=== PATIENT | male | born 1960 | race Two or more races ===

== ENCOUNTER 2025-06-08 07:42 | Inpatient (IN) | payer MEDICARE, SELFPAY ==
[2025-06-08] VITALS (16 sets, daily range): BP systolic 114–141; BP diastolic 65–84; PULSE 81–98; RESP 16–100; TEMP 36–37.6; O2SAT 99–100; BMI 23.2
--- NOTE | 2025-06-08 08:04 | XR_ITS ---
Examination: CT abdomen and pelvis without contrast. Coronal 3-D reconstructions. Sagittal 2-D reconstructions. Date and time of exam:June 08, 2025 0856 hours INDICATIONS: Generalized abdominal pain today CTDI: vol (mGy): 4.71 DLP: (mGycm): 238 Technique: Axial images of the abdomen have been obtained, 3 mm slice thickness Intravenous contrast material has not been administered. Low dose protocols were performed. One or more of the following dose reduction techniques were used; automated exposure control, adjustment of the mA and/or KV according to patient size, use of iterative reconstruction technique. Findings: No focal liver or splenic lesion No gallstones No pancreatic or adrenal mass No renal or ureteral calculi, no hydronephrosis Aorta normal size Normal appendix No bowel obstruction Sigmoid colon wall is abnormally thickened, axial image 151 on this noncontrast study Mild prostatomegaly Intact urinary bladder Moderate osteopenia IMPRESSION: No renal or ureteral calculi, no hydronephrosis Normal appendix Sigmoid colon wall is abnormally thickened, recommend colonoscopy follow-up to exclude early malignant neoplasm of the sigmoid colon
--- NOTE | 2025-06-08 08:04 | PD.EDRME ---
Rapid Medical Screening Exam RME Arrival date/time: 06/08/25 07:42 65-year-old male with a history of hypertension presents to the emergency room after being sent by [facility] for hemoglobin of 5.6. Patient states he had 1 episode of rectal bleeding today. I have greeted and performed a focused initial assessment of this patient. A comprehensive ED assessment and evaluation of the patient, analysis of all test results, and completion of the medical decision making process will be conducted by additional ED providers. Chief Complaint: General Adult/Misc Complain Vital signs: Vital Signs Temperature 98.1 F 06/08/25 07:53 Pulse Rate 98 06/08/25 07:53 Respiratory Rate 19 06/08/25 07:53 Blood Pressure 118/71 06/08/25 07:53 Pulse Oximetry (%) 100 06/08/25 07:53 Oxygen Delivery Method Room Air 06/08/25 07:53 Vital signs reviewed by provider: Yes
[2025-06-08 08:37] LABS: Collection Type, Urine Clean Catch; Squamous Epithelial Cell,Urine 0 /hpf (0-5)
[2025-06-08 08:53] LABS: Bilirubin,Urine Negative (Negative); Blood,Urine Negative (Negative); Clarity,Urine Clear (Clear/Hazy); Color,Urine Lt-Yellow (Lt Yel-Yel); Glucose, Urine Negative (Negative); Hyaline Casts,Urine < 1 /hpf (0-1); Ketones,Urine Negative (Negative); Leukocyte Esterase,Urine Negative (Negative); Nitrite,Urine Negative (Negative); PH,Urine 6.0 (5.0-7.0); Protein,Urine Negative (Neg - Trace); RBC,Urine < 1 /hpf (0-3); Specific Gravity,Urine 1.013 (1.001-1.035); Urobilinogen,Urine Negative mg/dL (0.0-1.0); WBC,Urine < 1 /hpf (0-5)
[2025-06-08 09:07] LABS: Basophils # (Auto) 0.1 Thou/mm3 (0.0-0.2); Basophils % (Auto) 1 % (0-2.5); Eosinophils # (Auto) 0.3 Thou/mm3 (0.0-0.5); Eosinophils % (Auto) 3 % (0-10); Hematocrit 21.6 % (41.0-53.0); Immature Granulocytes Auto 0.03 Thou/mm3 (0.00-0.00); Lymphocytes # (Auto) 1.2 Thou/mm3 (1.0-4.8); Lymphocytes % (Auto) 15 % (10-50); Mean Corpuscular HGB Conc 25.5 g/dl (31.0-37.0); Mean Corpuscular Hemoglobin 14.0 pg (25.0-35.0); Mean Corpuscular Volume 55 fL (80-100); Monocytes # (Auto) 0.9 Thou/mm3 (0.0-0.8); Monocytes % (Auto) 12 % (0-12); Neutrophils # (Auto) 5.4 Thou/mm3 (1.8-7.7); Neutrophils % (Auto) 69 % (37-80); Nucleated Red Blood Cell # 0.05 Thou/mm3 (0.00-0.00); Nucleated Red Blood Cell % 1 /100 WBC (0); Platelet Count 414 Thou/mm3 (140-440); RDW Standard Deviation 45.5 fL (35.1-43.9); Red Blood Count 3.92 Miln/mm3 (4.50-5.90); White Blood Count 7.8 Thou/mm3 (3.8-10.6)
[2025-06-08 09:20] LABS: Alanine Aminotransferase 20 U/L (10-49); Albumin, Serum 4.6 gm/dL (3.4-4.8); Albumin/Globulin Ratio 1.6 (1.2-2.2); Alkaline Phosphatase 62 U/L (46-116); Anion Gap 11 (7-16); Aspartate Amino Transferase 24 U/L (0-34); BUN/Creatinine Ratio 17 Ratio (12-20); Bilirubin,Total 0.4 mg/dL (0.3-1.2); Blood Urea Nitrogen 24 mg/dL (9-23); Calcium 9.1 mg/dL (8.3-10.6); Calcium (Corrected) 9.1 mg/dL (8.5-10.1); Carbon Dioxide 21.4 mMol/L (20.0-31.0); Chloride 106 mMol/L (98-107); Creatinine (Component) 1.4 mg/dL (0.6-1.3); Estimated Creatinine Clearance 37.9 mL/min (>60); Globulin 2.9 gm/dL (2.3-3.5); Glucose 148 mg/dL (74-106); Lipase 109 U/L (12-53); Osmolality,Calculated 282 (275-295); Potassium 4.0 mMol/L (3.4-5.1); Sodium 138 mMol/L (136-145); Total Protein 7.5 gm/dL (5.7-8.2); eGFR 55 See Note
[2025-06-08 09:24] LABS: INR 0.9 (0.9-1.3); Partial Thromboplastin Time 23.9 Seconds (22.0-36.0); Prothrombin Time 10.3 Seconds (9.0-12.2)
[2025-06-08 09:56] LABS: Hemoglobin 5.5 g/dL (13.5-16.0)
--- NOTE | 2025-06-08 10:57 | PD.EDADULT ---
ED General RME/HPI General Chief complaint: General Adult/Misc Complain Stated complaint: HBG 5.6; SENT BY [facility] Time Seen by Provider: 06/08/25 08:42 Arrival date/time: 06/08/25 07:42 RME / HPI RME / HPI narrative: 06/08/25 07:42 65-year-old male with a history of hypertension presents to the emergency room after being sent by [facility] for hemoglobin of 5.6. Patient states he had 1 episode of rectal bleeding today. I have greeted and performed a focused initial assessment of this patient. A comprehensive ED assessment and evaluation of the patient, analysis of all test results, and completion of the medical decision making process will be conducted by additional ED providers. DR. NARVAEZ MAIN ED EVALUATION 65 year old male with history of hypertension presents to the ED sent by PCP at [facility] for further evaluation and treatment of anemia today. Patient reports he consulted his PCP for evaluation of global weakness beginning 1 month ago and had labs drawn on 06/06/2025. States he received a call today stating his HGB/HCT were 5.6/25.3. Patient reports he has had dark colored stools for some time without any obvious blood and today had one episode of bright red blood in stool. Additionally reports he feels his abdomen is full of air and is having frequent small mucousy bowel movements. Denies any previous GI bleed. No other associated symptoms reported. Denies fever, chills, sweating. Denies chest pain, cough, shortness of breath. Denies nausea, vomiting, diarrhea, constipation. Denies dysuria, urinary frequency and urgency. Related Data Home Medications ?Medication ?Instructions ?Recorded ?Confirmed Buspirone * (BUSPAR *) 5 mg PO BID #0 tabs 03/10/16 Losartan Potassium * (COZAAR *) 25 mg PO QDAY #0 tabs 03/10/16 aspirin 325 mg tablet ##0 03/10/16 carvedilol 3.125 mg tablet (Coreg) 3.125 mg PO BID #0 tabs 03/10/16 escitalopram oxalate 5 mg tablet 5 mg PO QDAY #0 tabs 03/10/16 (Lexapro) Allergies Allergy/AdvReac Type Severity Reaction Status Date / Time No Known Allergies Allergy Verified 06/08/25 07:46 Review of Systems Review of Systems Systems Reviewed: All systems reviewed, normal except as documented Past Medical History Past Medical History CARDIAC: Positive Hypertension; Negative Congestive Heart Failure RESPIRATORY: Negative Chronic Obstructive Pulmonary Disease (COPD) GENITOURINARY: Negative Renal Disease ENDOCRINE: Negative Diabetes Mellitus Type 1 or Diabetes Mellitus Type 2 Social History SMOKING STATUS: Former smoker ED Exam Narrative Physical exam: GENERAL APPEARANCE: alert and oriented x 4, well-developed, well-nourished, no acute distress; pale HEENT: Normocephalic, atraumatic; pupils equal, round, reactive to light; EOMI; mucous membranes pink, moist; oropharynx clear NECK: Supple LUNGS: CTABL; no wheezes, no rales, no rhonchi HEART: Regular rate, regular rhythm; normal S1, S2; no murmurs ABDOMEN: non distended; normal BS; soft, no tenderness, no guarding, no rebound; no masses, no organomegaly, no hernia BACK: no CVA tenderness EXTREMITIES: atraumatic; no edema NEUROLOGIC: awake; alert and oriented x4; cranial nerves II-XII grossly intact; no focal sensory or motor deficits PSYCHIATRIC: appropriate mood and affect SKIN: warm, dry, pallor; no rashes Course Quality Measures none Orders Category Date Time Status CT abdomen pelvis wo con Stat Exams 06/08/25 08:04 Completed CBC Stat Lab 06/08/25 08:34 Completed CMP [Comprehensive Metabolic Panel] Stat Lab 06/08/25 08:34 Completed Lipase Stat Lab 06/08/25 08:34 Completed PT [Prothrombin Time with INR] Stat Lab 06/08/25 08:34 Completed PTT [Partial Thromboplastin Time] Stat Lab 06/08/25 08:34 Completed Path Review Blood Smear Stat Lab 06/08/25 08:34 Completed Type and Screen Stat Lab 06/08/25 09:28 Completed UA [Urinalysis] Stat Lab 06/08/25 08:16 Completed Urine Culture Stat Lab 06/08/25 08:16 Received Vital Signs Vital signs: Vital Signs Temperature 98.1 F 06/08/25 07:53 Pulse Rate 98 06/08/25 07:53 Respiratory Rate 19 06/08/25 07:53 Blood Pressure 118/71 06/08/25 07:53 Pulse Oximetry (%) 100 06/08/25 07:53 Oxygen Delivery Method Room Air 06/08/25 07:53 Pulse ox is 100% on room air which is adequate. Critical Care Time Critical Care Time Critical Care Time: No Discharge Plan Plan Patient Disposition: Admit Acute Care w/in Hospital Discharge Disposition comment: [facility] consulting Prescriptions/Referrals Prescriptions/Med Rec: No Action aspirin 325 MG tablet Qty: 0 carvedilol [Coreg] 3.125 MG tablet 3.125 mg PO BID Qty: 0 escitalopram oxalate [Lexapro] 5 MG tablet 5 mg PO QDAY Qty: 0 Buspirone * (BUSPAR *) 5 MG tablet 5 mg PO BID Qty: 0 Losartan Potassium * (COZAAR *) 25 MG tablet 25 mg PO QDAY Qty: 0 Referrals: Sky Thurston MD [Primary Care Provider] - In 1 week Problem List Clinical Impression: Symptomatic anemia Patient/Caregiver Discharge Instructions Print Language: Kyrgyz Stand Alone Forms: Bibi Award Info., Patient Portal Info Letter MDM Narrative [facility] hospital course: IMagnolia am scribing for and in the presence of Dr. Narvaez. Clinical Information Provided by patient Medical Records Reviewed None No previous visits for review Meds/Rx Considered, not Ordered None Labs/Rad/Tests considered, not Ordered None Chronic Illness/Social Conditions which may negatively complicate care or outcome(s)-explain: None or not applicable Lab Interpretation Labs: interpreted by dc Lab(s) interpretation(s): Patient severely anemic, H/H 5.5/21.6 Imaging Radiology reports / interpretation(s): Ordering Physician: Woody George Date of Service: 06/08/25 Procedure(s): CT abdomen pelvis wo [place] Accession Number(s): [id number] cc: Woody George; Sky Thurston MD; Joe Mejia MD~ Examination: CT abdomen and pelvis without contrast. Coronal 3-D reconstructions. Sagittal 2-D reconstructions. Date and time of exam:June 08, 2025 0856 hours INDICATIONS: Generalized abdominal pain today CTDI: vol (mGy): 4.71 DLP: (mGycm): 238 Technique: Axial images of the abdomen have been obtained, 3 mm slice thickness Intravenous contrast material has not been administered. Low dose protocols were performed. One or more of the following dose reduction techniques were used; automated exposure control, adjustment of the mA and/or KV according to patient size, use of iterative reconstruction technique. Findings: No focal liver or splenic lesion No gallstones No pancreatic or adrenal mass No renal or ureteral calculi, no hydronephrosis Aorta normal size Normal appendix No bowel obstruction Sigmoid colon wall is abnormally thickened, axial image 151 on this noncontrast study Mild prostatomegaly Intact urinary bladder Moderate osteopenia IMPRESSION: No renal or ureteral calculi, no hydronephrosis Normal appendix Sigmoid colon wall is abnormally thickened, recommend colonoscopy follow-up to exclude early malignant neoplasm of the sigmoid colon Dictated By: Joe Mejia MD Signed By: <Electronically signed by Joe Mejia MD in OV> 06/08/25 0910 Medication Administration(s) See above Consultations/Discussions re: Management Consult #1: Date/time: 06/08/25 11:52 am Physician, specialty, service, details: I spoke with GI Dr. Urbano. Discussed patients PMHx, HPI, ED course, exam findings, labs, and radiology results. He agrees to consult. Consult #2: Date/time: 06/08/25 11:57 am Physician, specialty, service, details: I spoke with resident working with hospitalist Dr. Florence. Discussed patients PMHx, HPI, ED course, exam findings, labs, and radiology results. The hospitalist agree to accept the patient for admission. Dispositon Disposition: Admit Disposition comments: [facility] consulting
[2025-06-08 11:17] LABS: Path Review Blood Smear Sent to Pathologist
--- NOTE | 2025-06-08 11:19 | PC.NURSE ---
Patient to er from [facility] and taken to room 11, sent by his provider for low H/H. Also, patient states he had a little bit of bright red blood in his stool this am and decreased appetite this last month, patient also c/o having generalizzed weakness. Patient denies pain, skin is warm, dry and slightly pale, patient awaiting to be seen by er provider in the main ed, at bedside. Call light within reach.
--- NOTE | 2025-06-08 14:23 | ESHP_ITS ---
<Statement entered by Del Aguirre MD - 06/08/25 20:13> I have reviewed the note and agree with the resident's assessment & plan with exceptions as below. I have personally reviewed labs, imaging, home meds/prior records, examined the patient, formulated and discussed management plan with the IM team. Pt examined at bedside today. Pt was sent over to the ED after labs outpatient showed Hgb of 5.5. Pt denies having dark colored stools, vomiting or coughing up blood but does endorse 10 lb weight loss past 3 months and loss of appetite. Never has had colonoscopy, denies family hx of cancer including colon, but does have smoking hx 20 years ago 20 pack years and has been having 2-3 shots a day everyday for the past 20 years. He endorses some diarrhea and having syncopal episodes in the past. Considering pt does haave drinking hx, concern for varices. GI on consult, appreciate recs. 2 PRBC transfused, follow up H and H. #Acute blood loss anemia #Symptomatic anemia DDx: GI Bleed, Cancer, chronic anemia, medication induced NSAID use? ASA Blood thinner use: None Plan: ? Trend CBC ? Iron studies panel, ferritin, reticulocyte count ? Peripheral blood smear ? Transfusion protocol hemoglobin below 7 ? Avoiding any NSAIDs ? SCDs ? Protonix 40 mg IV BID with loading dose ? Octretide Lisandra Aguirre, PGY-2 Internal Medicine Documentation for date of: 06/08/25 HPI History of Present Illness History of present illness: 65-year old male with PMH HTN who presented to ED this morning due to labs showing Hgb of 5.6 on recent routine labs from PCP. Patient reports 1 year history of dizziness, weakness, and fatigue. He notes 4-5 syncopal episodes last year that last several seconds each time, resulting in 2-3 falls. He denies any head trauma secondary to the falls. He states some of the syncopal episodes have been witnessed by others, and reports he has not been told of any seizure-like activities. However, reports one episode of fecal incontinence with one of the episodes of syncope this year. He denies any more syncopal episodes in the last 6 months, but notes ongoing fatigue, dizziness, and weakness. Also notes occasional episodes of right arm and hand cramping. He had an episode of pink- red blood with his bowel movement this morning, but denies any other recent episodes of hematochezia. He describes his stool as dark brown, but denies any black stools. He notes that he feels his abdomen is full of gas. He had one episode of diarrhea and emesis about 1 month ago that he attributes to food poisoning. He denies any blood in the emesis or stool at that time. Denies any other episodes of diarrhea or emesis in the last few months. Patient also reports decreased appetite recently. He states that the only medication change he has had recently was a decrease in his losartan dose from 100mg QD to 50 mg QD about 2 months ago due to decrease in his BP. He had self-initiated aspirin 81 mg po QD many years ago and denies any specific medical concern for starting aspirin. 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 Denies any other known changes about 1 year ago. Denies any fever, chills, or abdominal pain. Denies chest pain, palpitations, or shortness of breath. ED course: Vitals: 118/71, HR 98, RR 19, 98.1F, 100 O2 on RA Labs: Hgb 5.5, MCV 55, Hct 21.6, lipase 109, PT 10.3, INR 0.9, PTT 23.9, UA unremarkable, urine culture pending Imaging: Abd/Pelvis CT IMPRESSION: No renal or ureteral calculi, no hydronephrosis Normal appendix Sigmoid colon wall is abnormally thickened, recommend colonoscopy follow-up to exclude early malignant neoplasm of the sigmoid colon Treatments: 2u blood transfusion PMH: HTN PSH: Denies any surgical hx. PFH: Father in 50s due to HF or some blood pressure issue . Denies any known family history of cancer. Medications: losartan 50 mg po QD (recently decreased from 100 mg about 2 months ago), ?amlodipine QD (unknown dose), aspirin 81 mg po QD Allergies: NKDA Social Hx: - Tobacco use: 1 ppd x 20 years (20 pk-years), quit 20 years ago - Alcohol: 2-3 shots of whiskey almost daily for 20 years. Last drink was 8/3 afternoon. - Drugs: Denies any history of drug use. 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 - Housing: lives with in house Pharmacy: [facility] Review of Systems Review of Systems Narrative Review of Systems: All systems reviewed, normal except as documented Exam Vital Signs Temp Pulse Resp BP Pulse Ox O2 Del Method 97.9 F 93 19 126/67 100 Room Air 06/08/25 12:13 06/08/25 12:13 06/08/25 12:13 06/08/25 12:13 06/08/25 12:13 06/08/25 12:13 Narrative Exam GENERAL: A&OX3. No acute distress. HEENT: Normocephalic. Moist mucous membranes. EOMI, normal conjunctiva bilat CV: Regular rate and rhythm. S1 and S2 heard. No murmurs. PULM: No accessory muscle use. CTAB. No wheezing or crackles. SKIN: Warm and dry. Hyperpigmented patches on lower legs bilaterally. NEURO: 5/5 strength of bilateral upper and lower extremities. Sensation present and equal bilaterally on face, UE and LE. No aphasia. No facial asymmetry. PSYCH: Cooperative with exam. Results: Labs 06/09/25 05:26 06/09/25 05:26 Labs: Short CBC 06/08/25 Range/Units 08:34 WBC 7.8 (3.8-10.6) Thou/mm3 Hgb 5.5 L* (13.5-16.0) g/dL Hct 21.6 L* (41.0-53.0) % Plt Count 414 (140-440) Thou/mm3 BMP 06/08/25 08:34 Sodium 138 Potassium 4.0 Chloride 106 Carbon Dioxide 21.4 BUN 24 H Creatinine 1.4 H Glucose 148 H Calcium 9.1 Liver Function 06/08/25 Range/Units 08:34 Total Bilirubin 0.4 (0.3-1.2) mg/dL AST 24 (0-34) U/L ALT 20 (10-49) U/L Alkaline Phosphatase 62 (46-116) U/L Albumin 4.6 (3.4-4.8) gm/dL Urine 06/08/25 Range/Units 08:16 Urine Color Lt-Yellow (Lt Yel-Yel) Urine Clarity Clear (Clear/Hazy) Urine pH 6.0 (5.0-7.0) Ur Specific [place] 1.013 (1.001-1.035) Urine Protein Negative (Neg - Trace) Urine Glucose (UA) Negative (Negative) Quality Measures Quality Measures none Advance care planning discussed with:: patient Medications Home Medications and Allergies Home Medications ?Medication ?Instructions ?Recorded ?Confirmed ?Type Losartan Potassium * (COZAAR *) 50 mg PO QDAY #0 tabs 03/10/16 06/08/25 History Allergies Allergy/AdvReac Type Severity Reaction Status Date / Time No Known Allergies Allergy Verified 06/08/25 07:46 Visit Medications Pantoprazole Sodium (Pantoprazole Inj 40 Mg Vial) 40 mg IVP BID NIRMAL Stop: 07/08/25 20:59 Discontinued Medications Pantoprazole Sodium (Pantoprazole Inj 40 Mg Vial) 80 mg IVP X1 ONE Stop: 06/08/25 13:38 Last Admin: 06/08/25 14:02 Dose: 80 mg Assessment & Plan Plan Assessment 65 year old male with PMH HTN who presented to ED on 06/08/25 with Hgb of 5.6 on outside labs. Admitted for management of symptomatic anemia and rule out of GI bleed. #Acute blood loss anemia #Symptomatic Anemia #Microcytic anemia DDx: GI bleed, esophageal varices, malignancy Hgb 5.6 on outside labs, 5.5 on presentation to ED. MCV 55. Symptomatic for the past year, including falls, dizziness, weakness, and fatigue. Also had 4-5 syncopal episodes last year. Last episode about 6 months ago, per patient. Pt has never had colonoscopy, no cancer hx in family, however endorses weight loss and loss of appetite. Pt does have smoking hx as well Never had EGD before, but esophageal varices must be included on DDx due to patient's significant drinking hx. - GI consulted: planning for EGD and colonoscopy. - Clear liquid diet and GoLytely until EGD and colonoscopy is done. - Check post-transfusion hemoglobin and hematocrit. 2u blood transfusion given at ED. - Recheck coag studies. - Ordered hepatitis panel, - Protonix 80 mg IV loading dose, then 40 mg IV BID - Start ceftriaxone 1g QD for spontaneous bacterial peritonitis prophylaxis - Start octreotide drip (06/08-) #Syncope #Falls EKG NSR Plan: - Will consider orthostatic vitals once anemia resolves - Telemetry #MASLD #Elevated lipase Liver US on 06/08/25 showing normal gallbladder and common bile duct. 12.2cm fatty infiltration in liver Liver enzymes unremarkable - Trend CMP #Alcohol use disorder 2-3 shots of whiskey daily for 20 years . Last alcoholic drink on 06/07 afternoon. - [facility] protocol - thiamine and folate supplementation - Liver ultrasound ordered #HTN BP of 119/65 today - Hold home blood pressure medications for now - Hold aspirin given GI bleed concern Health maintenance Disposition: Telemetry GI Prophylaxis: Protonix 40 mg IV BID Diet: Clear liquid diet DVT prophylaxis: SCDs CODE STATUS: Full Case discussed with my attending Dr. Florence, and senior resident, Dr. Carla Jimenez, OMS4 Attending Provider Attestation/Addendum After examination of the patient and review of the clinical data I feel that this patient needs admission to the hospital for further treatment/evaluation. I have discussed and was present for the essential components of the history, physical examination, diagnosis, and treatment plan with the resident. I agree with the patient's care as documented by the resident and amended herein by me. Tej Florence, DO. Although this document has been carefully reviewed, there may still be some phonetic and other typographical errors. These errors are purely grammatical due to imperfections in the software program and should not be construed in any way to compromise the substance of the patient's medical care during this visit.
--- NOTE | 2025-06-08 14:38 | PD.IMCONS ---
HPI Data of Consult Requesting Physician: Kris Florence DO Primary Care Provider: Sky Thurston MD Consult Narrative Reason for consult: Acute on chronic GI bleed H/H 5.5/21.6 History of present illness: 65 years old male comes in for evaluation to the emergency room at the request of his primary care physician for generalized weakness and stools for the last 1 month Presenting hemoglobin hematocrit of 5.5 and 21.6 Patient had an episode of bright red bleeding per rectum in the ER as per the ER physician Patient was subsequently admitted The only other medical issue is essential hypertension cc:: cc: Kris Florence DO Review of Systems Review of Systems Systems Reviewed: All systems reviewed, normal except as documented Meds Home Medications and Allergies Home Medications ?Medication ?Instructions ?Recorded ?Confirmed ?Type Buspirone * (BUSPAR *) 5 mg PO BID #0 tabs 03/10/16 History Losartan Potassium * (COZAAR *) 25 mg PO QDAY #0 tabs 03/10/16 History aspirin 325 mg tablet ##0 03/10/16 History carvedilol 3.125 mg tablet (Coreg) 3.125 mg PO BID #0 tabs 03/10/16 History escitalopram oxalate 5 mg tablet 5 mg PO QDAY #0 tabs 03/10/16 History (Lexapro) Allergies Allergy/AdvReac Type Severity Reaction Status Date / Time No Known Allergies Allergy Verified 06/08/25 07:46 Exam Vital Signs Temp Pulse Resp BP Pulse Ox O2 Del Method 97.9 F 93 19 126/67 100 Room Air 06/08/25 12:13 06/08/25 12:13 06/08/25 12:13 06/08/25 12:13 06/08/25 12:13 06/08/25 12:13 Constitutional Comments: Chronically ill-appearing Routine Respiratory Exam Comments: Normal to auscultation Routine Abdominal Exam Comments: Soft nontender Results Labs 06/08/25 08:34 06/08/25 08:34 Labs: Short CBC 06/08/25 Range/Units 08:34 WBC 7.8 (3.8-10.6) Thou/mm3 Hgb 5.5 L* (13.5-16.0) g/dL Hct 21.6 L* (41.0-53.0) % Plt Count 414 (140-440) Thou/mm3 BMP 06/08/25 08:34 Sodium 138 Potassium 4.0 Chloride 106 Carbon Dioxide 21.4 BUN 24 H Creatinine 1.4 H Glucose 148 H Calcium 9.1 Liver Function 06/08/25 Range/Units 08:34 Total Bilirubin 0.4 (0.3-1.2) mg/dL AST 24 (0-34) U/L ALT 20 (10-49) U/L Alkaline Phosphatase 62 (46-116) U/L Albumin 4.6 (3.4-4.8) gm/dL Urine 06/08/25 Range/Units 08:16 Urine Color Lt-Yellow (Lt Yel-Yel) Urine Clarity Clear (Clear/Hazy) Urine pH 6.0 (5.0-7.0) Ur Specific [place] 1.013 (1.001-1.035) Urine Protein Negative (Neg - Trace) Urine Glucose (UA) Negative (Negative) Assessment and Plan Additional Assessment & Plan Additional Plan: # Acute posthemorrhagic anemia with episode of bright red bleeding per rectum in the ER patient with dark stools Plan Agree with the blood transfusion IV Protonix Abnormal CAT scan showing thickening of the sigmoid colon along with rectal bleeding per rectum Clear liquid diet and GoLytely prep Consent obtained for both fiberoptic colonoscopy as well as fiberoptic upper endoscopy with possible therapeutic intervention under intravenous moderate sedation Patient to continue drinking clear liquid diet as long as he is drinking GoLytely Serial CBC Other medical problems include # Essential hypertension Thank you very much for the opportunity to participate in the care of this patient
--- NOTE | 2025-06-08 15:00 | XR_ITS ---
Examination: Abdomen sonogram, Limited Date and time of exam: June 08, 2025 1515 hours INDICATIONS: Elevated liver enzymes on left are examination today Technique: Real-time jaime scale transabdominal sonographic images of the upper abdomen obtained. Findings: Gallbladder Normal common bile duct 0.3 cm Pancreatic head 2.6 cm Liver 12.2 cm fatty infiltration Normal hepatopedal portal venous flow Patent IVC IMPRESSION: Normal gallbladder Normal common bile duct
[2025-06-08] MEDS: THIAMINE INJ 100 MG in SODIUM CHLORIDE 0.9% 100 ML 202 MG IV (18:44)
[2025-06-08] MEDS: FOLIC ACID 1 MG TABLET PO (18:46)
[2025-06-08] MEDS: NA SU/NAHCO3/KC/PEG (Golytely) 4,000 ML BTL 4000 ML PO (19:43)
[2025-06-08] MEDS: OCTREOTIDE ACET INJ 1,000 MCG in SODIUM CHLORIDE 0.9% 100 ML 5.1 MCG IV (20:31)
[2025-06-08] MEDS: OCTREOTIDE ACET INJ 50 mCg/ML VIAL IV (20:31)
[2025-06-08 20:53] LABS: Hematocrit 31.2 % (41.0-53.0); Hemoglobin 9.0 g/dL (13.5-16.0)
[2025-06-08] MEDS: cefTRIAXone/D5w 1gm IV premix 1 GM/50 ML BAG IV (21:30)
[2025-06-09] VITALS (24 sets, daily range): BP systolic 106–136; BP diastolic 71–91; PULSE 60–88; RESP 13–20; TEMP 36–36.6; O2SAT 93–100
[2025-06-09 06:15] LABS: Basophils # (Auto) 0.1 Thou/mm3 (0.0-0.2); Basophils % (Auto) 1 % (0-2.5); Eosinophils # (Auto) 0.5 Thou/mm3 (0.0-0.5); Eosinophils % (Auto) 6 % (0-10); Hematocrit 31.0 % (41.0-53.0); Hemoglobin 8.9 g/dL (13.5-16.0); Immature Granulocytes Auto 0.03 Thou/mm3 (0.00-0.00); Immature Reticulocyte Fraction 44.5 % (2.3-13.4); Lymphocytes # (Auto) 0.9 Thou/mm3 (1.0-4.8); Lymphocytes % (Auto) 12 % (10-50); Mean Corpuscular HGB Conc 28.7 g/dl (31.0-37.0); Mean Corpuscular Hemoglobin 17.7 pg (25.0-35.0); Mean Corpuscular Volume 62 fL (80-100); Monocytes # (Auto) 0.7 Thou/mm3 (0.0-0.8); Monocytes % (Auto) 9 % (0-12); Neutrophils # (Auto) 5.4 Thou/mm3 (1.8-7.7); Neutrophils % (Auto) 71 % (37-80); Nucleated Red Blood Cell # 0.03 Thou/mm3 (0.00-0.00); Nucleated Red Blood Cell % 0 /100 WBC (0); Platelet Count 352 Thou/mm3 (140-440); RDW Standard Deviation 64.0 fL (35.1-43.9); Red Blood Count 5.02 Miln/mm3 (4.50-5.90); Reticulocyte % (Auto) 0.5 % (0.5-1.5); Reticulocyte Absolute Auto 27.1 Biln/L (25.0-75.0); Reticulocyte Hgb Content 13.9 pg (28.0-35.0); White Blood Count 7.7 Thou/mm3 (3.8-10.6)
[2025-06-09 06:26] LABS: INR 1.0 (0.9-1.3); Partial Thromboplastin Time 24.4 Seconds (22.0-36.0); Prothrombin Time 10.6 Seconds (9.0-12.2)
[2025-06-09 06:41] LABS: Alanine Aminotransferase 21 U/L (10-49); Albumin, Serum 4.2 gm/dL (3.4-4.8); Albumin/Globulin Ratio 1.6 (1.2-2.2); Alkaline Phosphatase 57 U/L (46-116); Anion Gap 13 (7-16); Aspartate Amino Transferase 29 U/L (0-34); BUN/Creatinine Ratio 11 Ratio (12-20); Bilirubin,Total 0.8 mg/dL (0.3-1.2); Blood Urea Nitrogen 14 mg/dL (9-23); Calcium 8.8 mg/dL (8.3-10.6); Calcium (Corrected) 8.8 mg/dL (8.5-10.1); Carbon Dioxide 21.9 mMol/L (20.0-31.0); Chloride 107 mMol/L (98-107); Creatinine (Component) 1.3 mg/dL (0.6-1.3); Estimated Creatinine Clearance 40.4 mL/min (>60); Globulin 2.7 gm/dL (2.3-3.5); Glucose 148 mg/dL (74-106); Magnesium 1.6 mg/dL (1.6-2.6); Osmolality,Calculated 286 (275-295); Phosphorous 2.4 mg/dL (2.4-5.1); Potassium 4.2 mMol/L (3.4-5.1); Sodium 142 mMol/L (136-145); Total Protein 6.9 gm/dL (5.7-8.2); eGFR > 60 See Note
[2025-06-09 07:12] LABS: Ferritin 4 ng/mL (10.5-307.3); Iron 46 mcg/dL (65-175); Percent Iron Saturation 16 % (20-55); Total Iron Binding Capacity 285 mcg/dL (250-425); Unsaturated Iron Binding 239 (225-295)
[2025-06-09 07:29] LABS: Hepatitis B Core Antibody IgM Non Reactive (Non React); Hepatitis B Surface Ab Reactive (Immune) (Immune); Hepatitis B Surface Antigen Non Reactive (Non React); Hepatitis C Antibody Non Reactive (Non React)
[2025-06-09] MEDS: cefTRIAXone/D5w 1gm IV premix 1 GM/50 ML BAG IV (08:20)
[2025-06-09] MEDS: THIAMINE INJ 100 MG in SODIUM CHLORIDE 0.9% 100 ML 202 MG IV (08:22)
--- NOTE | 2025-06-09 09:24 | ESPR_ITS ---
<Statement entered by Del Aguirre MD - 06/10/25 15:07> I have reviewed the note and agree with the resident's assessment & plan with exceptions as below. I have personally reviewed labs, imaging, home meds/prior records, examined the patient, formulated and discussed management plan with the IM team. Patient examined at bedside today. Patient continues to improve, however will get EGD and colonoscopy today by Dr. Urbano. Currently on prep. Currently on CIWA protocol for possible alcohol withdrawal. Repeat hematology and chemistry in AM. Follow-up with colonoscopy and EGD results. Del Aguirre, PGY-2 Internal Medicine Documentation for date of: 06/09/25 Subjective Subjective Interval history: Patient was examined at bedside. No acute events overnight. Patient reports he is feeling better overall and has more energy today. He has been taking GoLytely prep and notes many watery bowel movements that have been light pink and light brown. He He denies dizziness, weakness, fatigue, or headache today. He denies nausea, vomiting, or abdominal pain today. He denies any concerns at this time. FIB-4 score of 1.2. Exam Vital Signs Temp Pulse Resp BP Pulse Ox O2 Del Method 97.0 F 74 18 121/73 96 Room Air 06/09/25 08:00 06/09/25 08:00 06/09/25 08:00 06/09/25 08:00 06/09/25 08:00 06/09/25 08:00 Narrative Exam GENERAL: A&OX3. No acute distress. Not diaphoretic. HEENT: Normocephalic. No scleral icterus. EOMI. CV: Regular rate and rhythm. S1 and S2 heard. No murmurs. PULM: No accessory muscle use. CTAB. No wheezing or crackles. ABDOMEN: Soft and non-distended. No tenderness to palpation of all quadrants. No rebound or guarding. SKIN: Warm and dry. NEURO: Moving all extremities spontaneously. No aphasia. No facial asymmetry. PSYCH: Cooperative with exam. Objective Labs 06/10/25 04:46 06/10/25 04:46 Labs: Laboratory Results - last 24 hr 06/08/25 06/08/25 06/08/25 08:34 09:28 20:39 WBC 7.8 RBC 3.92 L Hgb 5.5 L* 9.0 L D Hct 21.6 L* 31.2 L MCV 55 L MCH 14.0 L MCHC 25.5 L RDW Std Deviation 45.5 H Plt Count 414 Neut % (Auto) 69 Lymph % (Auto) 15 [place] % (Auto) 12 Eos % (Auto) 3 Baso % (Auto) 1 Neut # (Auto) 5.4 Lymph # (Auto) 1.2 [place] # (Auto) 0.9 H Eos # (Auto) 0.3 Baso # (Auto) 0.1 Immature Gran # (Auto) 0.03 H Absolute Nucleated RBC 0.05 H Immature Gran % 0 Nucleated RBC % 1 H Smear Path Review Sent to Pathologist Retic Count (auto) Absolute Retic Immature Retic Fraction Retic Hgb Content CHr PT 10.3 INR 0.9 APTT 23.9 Sodium Potassium Chloride Carbon Dioxide Anion Gap BUN Creatinine Estim Creat Clear Calc eGFR BUN/Creatinine Ratio Glucose Calculated Osmolality Calcium Corrected Calcium Phosphorus Magnesium Iron TIBC Iron Saturation Unsat Iron Binding Ferritin Total Bilirubin AST ALT Alkaline Phosphatase Total Protein Albumin Globulin Albumin/Globulin Ratio Hep Bs Antigen Hep Bs Antibody Hep B Core IgM Ab Hepatitis C Antibody Blood Type B Positive Antibody Screen NEGATIVE Crossmatch See Detail Blood Bank Wristband ID Yes 06/09/25 05:26 WBC 7.7 RBC 5.02 Hgb 8.9 L Hct 31.0 L MCV 62 L MCH 17.7 L MCHC 28.7 L RDW Std Deviation 64.0 H Plt Count 352 D Neut % (Auto) 71 Lymph % (Auto) 12 [place] % (Auto) 9 Eos % (Auto) 6 Baso % (Auto) 1 Neut # (Auto) 5.4 Lymph # (Auto) 0.9 L [place] # (Auto) 0.7 Eos # (Auto) 0.5 Baso # (Auto) 0.1 Immature Gran # (Auto) 0.03 H Absolute Nucleated RBC 0.03 H Immature Gran % 0 Nucleated RBC % 0 Smear Path Review Cancelled Retic Count (auto) 0.5 Absolute Retic 27.1 Immature Retic Fraction 44.5 H Retic Hgb Content CHr 13.9 L PT 10.6 INR 1.0 APTT 24.4 Sodium 142 Potassium 4.2 Chloride 107 Carbon Dioxide 21.9 Anion Gap 13 BUN 14 Creatinine 1.3 Estim Creat Clear Calc 40.4 L eGFR > 60 BUN/Creatinine Ratio 11 L Glucose 148 H Calculated Osmolality 286 Calcium 8.8 Corrected Calcium 8.8 Phosphorus 2.4 Magnesium 1.6 Iron 46 L TIBC 285 Iron Saturation 16 L Unsat Iron Binding 239 Ferritin 4 L Total Bilirubin 0.8 AST 29 ALT 21 Alkaline Phosphatase 57 Total Protein 6.9 Albumin 4.2 Globulin 2.7 Albumin/Globulin Ratio 1.6 Hep Bs Antigen Non Reactive Hep Bs Antibody Reactive (Immune) Hep B Core IgM Ab Non Reactive Hepatitis C Antibody Non Reactive Blood Type Antibody Screen Crossmatch Blood Bank Wristband ID Quality Measures Quality Measures none Advance care planning discussed with:: patient Assessment & Plan Assessment Current Active Medications: Generic Name Dose Route Start Last Admin Trade Name Freq PRN Reason Stop Dose Admin Acetaminophen 650 mg 06/08/25 14:47 Acetaminophen 325 Mg Tablet PO 07/08/25 14:46 Q8HR PRN Fever >100.4 Acetaminophen 650 mg 06/08/25 14:47 Acetaminophen 325 Mg Tablet PO 07/08/25 14:46 Q8HR PRN PAIN SCALE 1-3 (mild Folic Acid 1 mg 06/08/25 15:05 06/08/25 18:46 Folic Acid 1 Mg Tablet PO 07/08/25 15:04 1 mg QDAY NIRMAL Administration Octreotide Acetate 1,000 mcg/ 102 mls @ 5.1 mls/hr 06/08/25 19:30 06/08/25 20:31 Sodium Chloride IV 06/13/25 19:29 50 mcg/hr .Q20H NIRMAL 5.1 mls/hr Administration Protocol 50 MCG/HR Ceftriaxone Sodium/Dextrose 1 gm in 50 mls @ 100 mls/hr 06/08/25 14:58 06/09/25 08:20 Rocephin/D5w 1gm Iv Premix IV 06/15/25 14:57 100 mls/hr QDAY NIRMAL Administration Thiamine HCl 100 mg/ Sodium 101 mls @ 202 mls/hr 06/08/25 15:05 06/09/25 08:22 Chloride IV 06/13/25 15:04 202 mls/hr QDAY NIRMAL Administration Lorazepam 0.5 mg 06/08/25 15:02 Lorazepam 0.5 Mg Tablet PO 06/13/25 15:01 Q4HR PRN CIWA Score 2-6 Lorazepam 1 mg 06/08/25 15:02 Lorazepam 0.5 Mg Tablet PO 06/13/25 15:01 Q4HR PRN CIWA SCORE 7-11 Lorazepam 2 mg 06/08/25 15:02 Lorazepam 0.5 Mg Tablet PO 06/13/25 15:01 Q4HR PRN CIWA SCORE 12-15 Ondansetron HCl 4 mg 06/08/25 14:47 Ondansetron Inj 2 Mg/Ml Inj 2 Ml IVP 07/08/25 14:46 Q6H PRN NAUSEA OR VOMITING Protocol Pantoprazole Sodium 40 mg 06/08/25 21:00 06/09/25 08:20 Pantoprazole Inj 40 Mg Vial IVP 07/08/25 20:59 40 mg BID NIRMAL Administration Plan Assessment 65 year old male with PMH HTN who presented to ED on 06/08/25 with Hgb of 5.6 on outside labs. Admitted for management of symptomatic anemia and rule out of GI bleed. #GI bleed anemia - symptomatic #Microcytic anemia DDx: GI bleed, esophageal varices, malignancy Hgb 5.6 on outside labs, 5.5 on presentation to ED. MCV 55. Symptomatic for the past year, including falls, dizziness, weakness, and fatigue. Pt has never had colonoscopy, no cancer hx in family, however endorses weight loss and loss of appetite. Pt does have smoking hx as well. Never had EGD before, but concern for esophageal varices, due to patient's significant drinking hx. Adequate response to 2u PRBC transfusion. Post-transfusion Hgb of 9.0. Hepatitis panel positive for Hep Bs Ab and negative for Bc Ab, Bs Ag, and Hep C Ab. Consistent with Hep B vaccination. Caog panel unremarkable. Plan: - GI consulted: planning for EGD and colonoscopy today - Clear liquid diet and GoLytely until EGD and colonoscopy is done. - Protonix 80 mg IV loading dose, then 40 mg IV BID - Continue ceftriaxone 1g QD for spontaneous bacterial peritonitis prophylaxis - Continue octreotide drip (06/08-) #Syncope #Falls Patient had 4-5 syncopal episodes last year. Last episode about 6 months ago, per patient. He had one syncopal episode with associated fecal incontinence in the past year. Uncertain etiology. Could be related to chronic anemia. EKG NSR Plan: - Will consider orthostatic vitals once anemia resolves - Telemetry #THORNTON #Elevated lipase Liver US on 06/08/25 showing normal gallbladder and common bile duct. 12.2cm fatty infiltration in liver Liver enzymes unremarkable. FIB-4 score of 1.2. - Trend CMP #Alcohol use disorder 2-3 shots of whiskey daily for 20 years . Last alcoholic drink on 06/07 afternoon. FIB-4 score of 1.2. - [facility] protocol - thiamine and folate supplementation - Liver ultrasound ordered #HTN BP of 119/65 today - Hold home blood pressure medications for now - Hold aspirin given GI bleed concern Health maintenance Disposition: Telemetry GI Prophylaxis: Protonix 40 mg IV BID Diet: Clear liquid diet DVT prophylaxis: SCDs CODE STATUS: Full Case discussed with my attending Dr. Florence, and senior resident, Dr. Carla Jimenez, OMS4 Attending Provider Attestation/Addendum I have discussed and was present for the essential components of the history, physical examination, diagnosis, and treatment plan with the resident. I agree with the patient's care as documented by the resident and amended herein by me. Tej Florence, DO. Although this document has been carefully reviewed, there may still be some phonetic and other typographical errors. These errors are purely grammatical due to imperfections in the software program and should not be construed in any way to compromise the substance of the patient's medical care during this visit. Patient seen and evaluated this AM. Hemoglobin stable 8.9 this morning posttransfusion. EGD and colonoscopy pending patient presently on Protonix, octreotide and ceftriaxone.
[2025-06-09] MEDS: OCTREOTIDE ACET INJ 1,000 MCG in SODIUM CHLORIDE 0.9% 100 ML 5.1 MCG IV (14:36)
--- NOTE | 2025-06-09 15:03 | PC.SS ---
Addendum entered by July Pascual 06/09/25 15:58: rounding note: Patient pending EGD and colonoscopy Original Note: SS met with patient who is alert/oriented. Patient was able to verify demographics. Patient Patient states he resides with . Patient was admitted for a gi bleed. Patient states he is independent with ADL's. Patient does not posess any DME. PCP: Dr. Thurston @ [facility]. Last appointment was in April. Next appt. June 19. Patient states he or family transport him to appointments. Patient does not see any specialty physicians. Patient states he will return home upon discharge. Pharmacy: [facility] or [facility]. Alt medical decision maker: , Claudia iL, D/c plan: home transportation: family
--- NOTE | 2025-06-09 20:04 | SUR.PHASEI ---
1946 patient is sleepy and arousable, breathing unlabored, s/p EGD and Colonoscopy under IV sedation, report received form Jazmyne JACKSON
--- NOTE | 2025-06-09 20:15 | SUR.PHASEI ---
2014 patient is sleepy and arousable, breathing unlabored, report given to Ernesto RN, patient transferred back to room 369
--- NOTE | 2025-06-09 20:29 | PC.NURSE ---
Patient arrived back on unit from endoscopy and colonoscopy @2019 via [place]. Patient is resting comfortably on gurney and is able to move from gurney to bed with no difficulty. Patient is showing no signs of distress.
[2025-06-09 22:32] LABS: Carcinoembryonic Antigen 6.5 ng/mL (0.0-5.0)
[2025-06-10] VITALS (8 sets, daily range): BP systolic 122–140; BP diastolic 81–89; PULSE 66–98; RESP 12–18; TEMP 36.1–36.6; O2SAT 95–98; BMI 21.3
[2025-06-10 05:09] LABS: Basophils # (Auto) 0.1 Thou/mm3 (0.0-0.2); Basophils % (Auto) 1 % (0-2.5); Eosinophils # (Auto) 0.3 Thou/mm3 (0.0-0.5); Eosinophils % (Auto) 3 % (0-10); Hematocrit 32.7 % (41.0-53.0); Hemoglobin 9.0 g/dL (13.5-16.0); Immature Granulocytes Auto 0.02 Thou/mm3 (0.00-0.00); Lymphocytes # (Auto) 1.4 Thou/mm3 (1.0-4.8); Lymphocytes % (Auto) 15 % (10-50); Mean Corpuscular HGB Conc 27.5 g/dl (31.0-37.0); Mean Corpuscular Hemoglobin 17.5 pg (25.0-35.0); Mean Corpuscular Volume 64 fL (80-100); Monocytes # (Auto) 0.9 Thou/mm3 (0.0-0.8); Monocytes % (Auto) 9 % (0-12); Neutrophils # (Auto) 6.7 Thou/mm3 (1.8-7.7); Neutrophils % (Auto) 72 % (37-80); Nucleated Red Blood Cell # 0.04 Thou/mm3 (0.00-0.00); Nucleated Red Blood Cell % 0 /100 WBC (0); Platelet Count 416 Thou/mm3 (140-440); RDW Standard Deviation 68.8 fL (35.1-43.9); Red Blood Count 5.14 Miln/mm3 (4.50-5.90); White Blood Count 9.3 Thou/mm3 (3.8-10.6)
[2025-06-10 05:23] LABS: INR 1.0 (0.9-1.3); Prothrombin Time 10.6 Seconds (9.0-12.2)
[2025-06-10 05:30] LABS: Alanine Aminotransferase 30 U/L (10-49); Albumin, Serum 4.6 gm/dL (3.4-4.8); Albumin/Globulin Ratio 1.5 (1.2-2.2); Alkaline Phosphatase 63 U/L (46-116); Anion Gap 10 (7-16); Aspartate Amino Transferase 45 U/L (0-34); BUN/Creatinine Ratio 7 Ratio (12-20); Bilirubin,Total 0.6 mg/dL (0.3-1.2); Blood Urea Nitrogen 10 mg/dL (9-23); Calcium 9.2 mg/dL (8.3-10.6); Calcium (Corrected) 9.2 mg/dL (8.5-10.1); Carbon Dioxide 22.0 mMol/L (20.0-31.0); Chloride 107 mMol/L (98-107); Creatinine (Component) 1.5 mg/dL (0.6-1.3); Estimated Creatinine Clearance 35.0 mL/min (>60); Globulin 3.1 gm/dL (2.3-3.5); Glucose 118 mg/dL (74-106); Magnesium 2.2 mg/dL (1.6-2.6); Osmolality,Calculated 277 (275-295); Phosphorous 3.3 mg/dL (2.4-5.1); Potassium 4.2 mMol/L (3.4-5.1); Sodium 139 mMol/L (136-145); Total Protein 7.7 gm/dL (5.7-8.2); eGFR 51 See Note
[2025-06-10] MEDS: cefTRIAXone/D5w 1gm IV premix 1 GM/50 ML BAG IV (08:13)
[2025-06-10] MEDS: FOLIC ACID 1 MG TABLET PO (08:14)
[2025-06-10] MEDS: THIAMINE INJ 100 MG in SODIUM CHLORIDE 0.9% 100 ML 202 MG IV (09:52)
--- NOTE | 2025-06-10 11:00 | ESCONSULT_ITS ---
HPI Data of Consult Consult date: 06/10/25 Requesting Physician: Kris Florence DO Primary Care Provider: Sky Thurston MD Consult Narrative Reason for consult: Likely colorectal cancer History of present illness: 65-year-old [place] male came to the ER for generalized weakness and passing bloody stools. Hemoglobin was 5.5 and hematocrit was 21.6. Received 2 units of packed cells and underwent panendoscopy performed by Dr. Urbano. Upper endoscopy 06/09/2025 revealed esophagitis lower third of the esophagus and patchy mildly erythematous mucosa without bleeding in the gastric antrum. Duodenum appeared normal. Lower endoscopy 06/09/2025 revealed 1 large 1 cm greater polyp in the transverse colon which was resected and a malignant appearing partially obstructing tumor in the rectum which was biopsied. The mass was central ulcerated a 10 to 12 cm in anal verge in the region of the proximal rectum going all the way up to the rectosigmoid junction and distal sigmoid that is about 6 cm long circumferential mass. CT abdomen pelvis June 08, 2025 revealed sigmoid colon that was abnormally thickened. There were no focal liver or splenic lesions no adenopathy. CEA elevated at 6.5, normal gallbladder and bile duct on ultrasound. MRI of the pelvis has been ordered and pending. Patient is now referred for oncological consultation. 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 Past Medical History Comments PMH COMMENT: Hypertension Meds Home Medications and Allergies Home Medications ?Medication ?Instructions ?Recorded ?Confirmed ?Type Losartan Potassium * (COZAAR *) 50 mg PO QDAY #0 tabs 03/10/16 06/08/25 History Allergies Allergy/AdvReac Type Severity Reaction Status Date / Time No Known Allergies Allergy Verified 06/09/25 19:09 Exam Vital Signs Temp Pulse Resp BP Pulse Ox O2 Del Method O2 Flow Rate 97.0 F 80 16 125/84 98 Room Air 3 06/10/25 08:00 06/10/25 08:00 06/10/25 08:00 06/10/25 08:00 06/10/25 08:00 06/10/25 08:00 06/09/25 19:35 Narrative Exam Tired appearing gentleman appears comfortable answering questions appropriately Results Labs 06/10/25 04:46 06/10/25 04:46 Labs: Short CBC 06/10/25 Range/Units 04:46 WBC 9.3 (3.8-10.6) Thou/mm3 Hgb 9.0 L (13.5-16.0) g/dL Hct 32.7 L (41.0-53.0) % Plt Count 416 D (140-440) Thou/mm3 BMP 06/10/25 04:46 Sodium 139 Potassium 4.2 Chloride 107 Carbon Dioxide 22.0 BUN 10 Creatinine 1.5 H Glucose 118 H Calcium 9.2 Liver Function 06/10/25 Range/Units 04:46 Total Bilirubin 0.6 (0.3-1.2) mg/dL AST 45 H (0-34) U/L ALT 30 (10-49) U/L Alkaline Phosphatase 63 (46-116) U/L Albumin 4.6 (3.4-4.8) gm/dL Assessment and Plan Additional Assessment & Plan Additional Plan: 1. Likely colorectal cancer partially obstructing mass 10 to 12 cm from anal verge going up to rectosigmoid region. Biopsy result pending. 2. No obvious distant mets on CT scan MRI pelvis pending. Mild elevation of CEA 3. Appears stable following packed cell transfusion following admission. Gave patient information to have primary care physician refer self to cancer center upon discharge. 4. Thank you very much for allowing me to evaluate this patient.
--- NOTE | 2025-06-10 12:26 | ESPR_ITS ---
Documentation for date of: 06/10/25 Subjective Subjective Interval history: Patient evaluated hemoglobin hematocrit 9.0 and 32.7 Exam Vital Signs Temp Pulse Resp BP Pulse Ox O2 Del Method O2 Flow Rate 97.0 F 80 16 125/84 98 Room Air 3 06/10/25 08:00 06/10/25 08:00 06/10/25 08:00 06/10/25 08:00 06/10/25 08:00 06/10/25 08:00 06/09/25 19:35 Objective Labs 06/10/25 04:46 06/10/25 04:46 Labs: Laboratory Results - last 24 hr 06/09/25 06/10/25 05:26 04:46 WBC 9.3 RBC 5.14 Hgb 9.0 L Hct 32.7 L MCV 64 L MCH 17.5 L MCHC 27.5 L RDW Std Deviation 68.8 H Plt Count 416 D Neut % (Auto) 72 Lymph % (Auto) 15 [place] % (Auto) 9 Eos % (Auto) 3 Baso % (Auto) 1 Neut # (Auto) 6.7 Lymph # (Auto) 1.4 [place] # (Auto) 0.9 H Eos # (Auto) 0.3 Baso # (Auto) 0.1 Immature Gran # (Auto) 0.02 H Absolute Nucleated RBC 0.04 H Immature Gran % 0 Nucleated RBC % 0 PT 10.6 INR 1.0 Sodium 139 Potassium 4.2 Chloride 107 Carbon Dioxide 22.0 Anion Gap 10 BUN 10 Creatinine 1.5 H Estim Creat Clear Calc 35.0 L eGFR 51 L BUN/Creatinine Ratio 7 L Glucose 118 H Calculated Osmolality 277 Calcium 9.2 Corrected Calcium 9.2 Phosphorus 3.3 Magnesium 2.2 Total Bilirubin 0.6 AST 45 H ALT 30 Alkaline Phosphatase 63 Total Protein 7.7 Albumin 4.6 Globulin 3.1 Albumin/Globulin Ratio 1.5 Carcinoembryonic Ag 6.5 H Impressions Impression: 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 Piper Our radiation oncologist Spoke with internal medicine team Insurance is an issue I would like to have case management work for authorization to be followed as an outpatient by a local oncology center before the patient can be discharged Assessment & Plan A&P Narrative 1. Likely colorectal cancer partially obstructing mass 10 to 12 cm from anal verge going up to rectosigmoid region. Biopsy result pending. 2. No obvious distant mets on CT scan MRI pelvis pending. Mild elevation of CEA 3. Appears stable following packed cell transfusion following admission. Gave patient information to have primary care physician refer self to cancer center upon discharge. 4. Thank you very much for allowing me to evaluate this patient. Time Spent With Patient Time: Total time spent is greater than 50% in coordination of care (as documented) at patient's floor/unit and/or counseling patient:
[2025-06-10 12:48] LABS: AFP Non-Pregnant 2.60 ng/mL (<8.10)
--- NOTE | 2025-06-10 13:41 | PC.SS ---
Follow up note: SS scheduled a follow up appt. at [facility] with Dr. Thurston on June 15 at 1:45p.m. SS requested they provide a referral to Oncology with Dr. Piper.
--- NOTE | 2025-06-10 15:05 | ESPR_ITS ---
<Statement entered by Del Aguirre MD - 06/10/25 16:26> I have reviewed the note and agree with the resident's assessment & plan with exceptions as below. I have personally reviewed labs, imaging, home meds/prior records, examined the patient, formulated and discussed management plan with the IM team. Patient examined at bedside today. Patient reports he is doing well and is in good spirits. Patient was found to have rectal mass on colonoscopy and esophagitis on EGD. Biopsies were taken for mass during colonoscopy. Patient likely has cancer as CEA elevated, however will wait for confirmatory pathology results. Patient to follow-up with Dr. Urbano outpatient. Will consult radiation oncology who will require a primary care referral to see him in the outpatient setting. Will order CEA as well. Patient to get pelvic MRI. Anticipate discharge within the next 24 to 48 hours. Spoke with social work team who was able to set up a appointment with patient's primary care doctor to set up appointment to initiate that referral to radiation oncology. Repeat hematology and chemistry in the a.m. Discontinued octreotide drip as there was no esophageal varices. Del Aguirre, PGY-2 Internal Medicine Documentation for date of: 06/10/25 Subjective Subjective Interval history: Patient was examined at bedside with present this morning. No acute events overnight. Patient states he has continued to have watery, light pink bowel movements. He denies fatigue, weakness, or abdominal pain. He states energy has overall been improved. He denies any acute concerns today. He notes approximate weight loss of 10 lbs in the past year. Exam Vital Signs Temp Pulse Resp BP Pulse Ox O2 Del Method O2 Flow Rate 96.9 F 98 18 122/81 98 Room Air 3 06/10/25 12:06/10/25 13:06/10/25 12:06/10/25 12:06/10/25 12:06/10/25 12:06/09/25 19:35 Narrative Exam GENERAL: A&OX3. No acute distress. Not diaphoretic. Ambulatory without assistance. HEENT: Normocephalic. No scleral icterus. EOMI CV: Regular rate and rhythm. S1 and S2 heard. No murmurs. PULM: No accessory muscle use. CTAB. No wheezing or crackles. ABDOMEN: Soft and non-distended. No tenderness to palpation of all quadrants. No rebound or guarding. SKIN: Warm and dry. NEURO: Moving all extremities spontaneously. No aphasia. No facial asymmetry. PSYCH: Cooperative with exam. Objective Labs 06/10/25 04:46 06/10/25 04:46 Labs: Laboratory Results - last 24 hr 06/09/25 06/10/25 05:26 04:46 WBC 9.3 RBC 5.14 Hgb 9.0 L Hct 32.7 L MCV 64 L MCH 17.5 L MCHC 27.5 L RDW Std Deviation 68.8 H Plt Count 416 D Neut % (Auto) 72 Lymph % (Auto) 15 [place] % (Auto) 9 Eos % (Auto) 3 Baso % (Auto) 1 Neut # (Auto) 6.7 Lymph # (Auto) 1.4 [place] # (Auto) 0.9 H Eos # (Auto) 0.3 Baso # (Auto) 0.1 Immature Gran # (Auto) 0.02 H Absolute Nucleated RBC 0.04 H Immature Gran % 0 Nucleated RBC % 0 PT 10.6 INR 1.0 Sodium 139 Potassium 4.2 Chloride 107 Carbon Dioxide 22.0 Anion Gap 10 BUN 10 Creatinine 1.5 H Estim Creat Clear Calc 35.0 L eGFR 51 L BUN/Creatinine Ratio 7 L Glucose 118 H Calculated Osmolality 277 Calcium 9.2 Corrected Calcium 9.2 Phosphorus 3.3 Magnesium 2.2 Total Bilirubin 0.6 AST 45 H ALT 30 Alkaline Phosphatase 63 Total Protein 7.7 Albumin 4.6 Globulin 3.1 Albumin/Globulin Ratio 1.5 Tumor Marker AFP 2.60 Carcinoembryonic Ag 6.5 H Quality Measures Quality Measures none Advance care planning discussed with:: patient Assessment & Plan Assessment Current Active Medications: Generic Name Dose Route Start Last Admin Trade Name Freq PRN Reason Stop Dose Admin Acetaminophen 650 mg 06/08/25 14:47 Acetaminophen 325 Mg Tablet PO 07/08/25 14:46 Q8HR PRN Fever >100.4 Acetaminophen 650 mg 06/08/25 14:47 Acetaminophen 325 Mg Tablet PO 07/08/25 14:46 Q8HR PRN PAIN SCALE 1-3 (mild Folic Acid 1 mg 06/08/25 15:05 06/10/25 08:14 Folic Acid 1 Mg Tablet PO 07/08/25 15:04 1 mg QDAY NIRMAL Administration Ceftriaxone Sodium/Dextrose 1 gm in 50 mls @ 100 mls/hr 06/08/25 14:58 06/10/25 08:13 Rocephin/D5w 1gm Iv Premix IV 06/15/25 14:57 100 mls/hr QDAY NIRMAL Administration Thiamine HCl 100 mg/ Sodium 101 mls @ 202 mls/hr 06/08/25 15:05 06/10/25 09:52 Chloride IV 06/13/25 15:04 202 mls/hr QDAY NIRMAL Administration Lorazepam 0.5 mg 06/08/25 15:02 Lorazepam 0.5 Mg Tablet PO 06/13/25 15:01 Q4HR PRN CIWA Score 2-6 Lorazepam 1 mg 06/08/25 15:02 Lorazepam 0.5 Mg Tablet PO 06/13/25 15:01 Q4HR PRN CIWA SCORE 7-11 Lorazepam 2 mg 06/08/25 15:02 Lorazepam 0.5 Mg Tablet PO 06/13/25 15:01 Q4HR PRN CIWA SCORE 12-15 Ondansetron HCl 4 mg 06/08/25 14:47 Ondansetron Inj 2 Mg/Ml Inj 2 Ml IVP 07/08/25 14:46 Q6H PRN NAUSEA OR VOMITING Protocol Pantoprazole Sodium 40 mg 06/11/25 09:00 Pantoprazole Inj 40 Mg Vial IVP 07/11/25 08:59 QDAY NIRMAL Plan Assessment 65 year old male with PMH HTN who presented to ED on 06/08/25 with Hgb of 5.6 on outside labs. Admitted for management of symptomatic anemia 2/2 lower GI bleed and rectal malignancy. #Lower GI bleed #Microcytic anemia Hgb 5.6 on outside labs, 5.5 on presentation to ED. MCV 55. Symptomatic for the past year, including falls, dizziness, weakness, and fatigue. Rectal mass concerning for adenocarcinoma found on colonoscopy, pending biopsy results. Esophageal varices ruled out on EGD. Adequate response to 2u PRBC transfusion. Post-transfusion Hgb of 9.0. Hepatitis panel positive for Hep Bs Ab and negative for Bc Ab, Bs Ag, and Hep C Ab. Consistent with Hep B vaccination. Caog panel unremarkable. Plan: - GI consulted, appreciate recs. - Decrease Protonix 40 mg IV from BID to QD - Discontinue octreotide drip - Continue ceftriaxone 1g QD for spontaneous bacterial peritonitis prophylaxis # Rectal mass, likely malignant Colonoscopy 06/09 found 6 cm malignant partially obstructing mass about 10-12 cm from anal verge. Concerning for rectal adenocarcinoma. CEA elevated at 6.5. AFP wnl at 2.6. Plan: - Oncology consulted, appreciate recs () - GI consulted, appreciate recs () - MRI pelvis w and wo contrast ordered, f/u - May consider further imaging if indicated #Syncope #Falls Patient had 4-5 syncopal episodes last year. Last episode about 6 months ago, per patient. He had one syncopal episode with associated fecal incontinence in the past year. Uncertain etiology. Could be related to chronic anemia. EKG NSR Plan: - Will consider orthostatic vitals once anemia resolves - Telemetry #Alcohol use disorder 2-3 shots of whiskey daily for 20 years . Last alcoholic drink on 06/07 afternoon. FIB-4 score of 1.2. - [facility] protocol - thiamine and folate supplementation #THORNTON #Elevated lipase Liver US on 06/08/25 showing normal gallbladder, normal common bile duct, and fatty infiltration in liver Liver enzymes unremarkable. FIB-4 score of 1.2. - Trend CMP #HTN BP has remained at goal. - Hold home blood pressure medications for now - Hold aspirin iso lower GI bleed Health maintenance Disposition: Telemetry GI Prophylaxis: Protonix 40 mg IV BID Diet: Clear liquid diet DVT prophylaxis: SCDs CODE STATUS: Full Case discussed with my attending Dr. Florence, and senior resident, Dr. Carla Jimenez, OMS4
[2025-06-10] MEDS: RINGERS LACTATED 1000 ML 1,000 ML 50 ML IV (20:45)
--- NOTE | 2025-06-10 20:52 | PC.NURSE ---
Was contacted by solder technician Nemo and was notified that the patient's Creatanin level is too high (1.5) for contrast. Night Nurse Ernesto, contacted Dr. Galloway and informed regardeing situation. Per Dr. Galloway, will do MRI tomorrow instead of tonight. Dr Galloway also put in an order for a bolus of Lactatic Ringer to run at 50 ml/hr. Night nurse Ernesto also informed patient regarding not having the MRI tonight but tomorrow.
[2025-06-11] VITALS: BP 128/81; PULSE 78; RESP 18; TEMP 36.6; O2SAT 97
--- NOTE | 2025-06-11 | XR_ITS ---
Examination: MRI pelvis, without contrast Date and time of exam: June 11, 2025 0854 hours INDICATIONS: Diagnosis rectal tumor on colonoscopy June 09, 2025 Technique: Multiple axial sagittal and coronal images of the pelvis have been obtained with the Siemens high-resolution 1.5 [place] MRI scanner. Images obtained include T2-weighted fat-suppressed sagittal sections, TR 3500, TE 46, T2 weighted coronal fat suppressed images, TR 3050, TE 84, T2-weighted transverse fat suppressed images, TR 3260, TE 63, proton density transverse images, TR 4720 TE 46, and T1 weighted coronal images, TR 560, TE 13. Findings: No common iliac and external iliac or internal iliac lymphadenopathy Rectosigmoid tumor mass axial image 13, tumor wall thickness up to 25 mm, extending over a proximal distal distance at least 6.3 cm No free fluid in the pelvis Adequate marrow signal involving the visualized osseous structures Bladder intact There is a fat plane between the rectosigmoid tumor mass in the latter This tumor mass appears to end approximately 5 cm from the anus No presacral tumor extension IMPRESSION: Rectosigmoid tumor mass proximal distal dimensions at least 6.3 cm No pathologic pelvic lymphadenopathy Consider PET CT scan follow-up for staging
[2025-06-11 04:00] VITALS: BP 122/80; PULSE 81; RESP 16; TEMP 36.6; O2SAT 99
[2025-06-11 06:17] LABS: Basophils # (Auto) 0.1 Thou/mm3 (0.0-0.2); Basophils % (Auto) 1 % (0-2.5); Eosinophils # (Auto) 0.5 Thou/mm3 (0.0-0.5); Eosinophils % (Auto) 4 % (0-10); Hematocrit 33.2 % (41.0-53.0); Hemoglobin 9.5 g/dL (13.5-16.0); Immature Granulocytes Auto 0.07 Thou/mm3 (0.00-0.00); Lymphocytes # (Auto) 2.0 Thou/mm3 (1.0-4.8); Lymphocytes % (Auto) 19 % (10-50); Mean Corpuscular HGB Conc 28.6 g/dl (31.0-37.0); Mean Corpuscular Hemoglobin 18.0 pg (25.0-35.0); Mean Corpuscular Volume 63 fL (80-100); Monocytes # (Auto) 0.9 Thou/mm3 (0.0-0.8); Monocytes % (Auto) 9 % (0-12); Neutrophils # (Auto) 7.0 Thou/mm3 (1.8-7.7); Neutrophils % (Auto) 67 % (37-80); Nucleated Red Blood Cell # 0.03 Thou/mm3 (0.00-0.00); Nucleated Red Blood Cell % 0 /100 WBC (0); Platelet Count 431 Thou/mm3 (140-440); RDW Standard Deviation 68.3 fL (35.1-43.9); Red Blood Count 5.28 Miln/mm3 (4.50-5.90); White Blood Count 10.5 Thou/mm3 (3.8-10.6)
[2025-06-11 06:29] LABS: INR 0.9 (0.9-1.3); Prothrombin Time 10.3 Seconds (9.0-12.2)
[2025-06-11 06:38] LABS: Alanine Aminotransferase 23 U/L (10-49); Albumin, Serum 4.5 gm/dL (3.4-4.8); Albumin/Globulin Ratio 1.5 (1.2-2.2); Alkaline Phosphatase 64 U/L (46-116); Anion Gap 11 (7-16); Aspartate Amino Transferase 25 U/L (0-34); BUN/Creatinine Ratio 9 Ratio (12-20); Bilirubin,Total 0.4 mg/dL (0.3-1.2); Blood Urea Nitrogen 13 mg/dL (9-23); Calcium 9.2 mg/dL (8.3-10.6); Calcium (Corrected) 9.2 mg/dL (8.5-10.1); Carbon Dioxide 22.6 mMol/L (20.0-31.0); Chloride 107 mMol/L (98-107); Creatinine (Component) 1.4 mg/dL (0.6-1.3); Estimated Creatinine Clearance 37.1 mL/min (>60); Globulin 3.0 gm/dL (2.3-3.5); Glucose 110 mg/dL (74-106); Magnesium 1.9 mg/dL (1.6-2.6); Osmolality,Calculated 282 (275-295); Phosphorous 3.1 mg/dL (2.4-5.1); Potassium 4.6 mMol/L (3.4-5.1); Sodium 141 mMol/L (136-145); Total Protein 7.5 gm/dL (5.7-8.2); eGFR 55 See Note
[2025-06-11 08:00] VITALS: BP 123/82; PULSE 92; PULSE 98; RESP 16; TEMP 36.3; O2SAT 99
[2025-06-11] MEDS: cefTRIAXone/D5w 1gm IV premix 1 GM/50 ML BAG IV (09:43)
[2025-06-11] MEDS: FOLIC ACID 1 MG TABLET PO (09:43)
[2025-06-11] MEDS: THIAMINE INJ 100 MG/ML VIAL 2 ML IVP (09:43)
[2025-06-11 12:00] VITALS: BP 140/89; PULSE 101; PULSE 99; RESP 16; TEMP 36.1; O2SAT 99
--- NOTE | 2025-06-11 12:45 | ESDS_ITS ---
<Statement entered by Del Aguirre MD - 06/11/25 19:28> I have reviewed the note and agree with the resident's assessment & plan with exceptions as below. I have personally reviewed labs, imaging, home meds/prior records, examined the patient, formulated and discussed management plan with the IM team. Patient examined at bedside today., Hemoglobin 9.5 upon discharge. Patient continues to improve. MRI was done and showed rectosigmoid tumor mass proximal distal dimensions at least 6.3 cm, no pathologic pelvic lymphadenopathy and to consider PET scan CT for follow-up staging. Patient to follow-up with radiation oncology as his primary care will set that referral up. Patient upon discharge has primary care appointment. Patient was then discharged with the following instructions listed below. Del Aguirre, PGY-2 Internal Medicine Planned Discharge Date 06/11/25 DS: Providers Provider Date of admission: 06/08/25 13:28 Primary care physician: Sky Thurston MD Admitting Provider: Kris Florence DO Attending Provider on Admission: Kris Florence DO Consults: 06/08/25 11:51 Consult to Gastroenterology Stat Comment: Consulting Provider: Kae Urbano 06/10/25 08:18 Consult to Oncology Routine Comment: Mass found on colonoscopy Consulting Provider: Manjeet Piper Attending Provider on DC: Kris Florence DO Discharging Provider: Kris Florence DO DS: Diagnosis Problem List Completed Was Problem List Reviewed/Reconciled?: Yes Hospital Course Hospital Course Hospital course: 65 year old male with PMH HTN who presented to ED on 06/08/25 with Hgb of 5.6 on outside labs. Admitted for management of symptomatic anemia 2/2 lower GI bleed. Found rectal invasive adenocarcinoma on colonoscopy with biopsy. ED course: Hgb 5.5, MCV 55, Hct 21.6, lipase 109, PT 10.3, INR 0.9, PTT 23.9. Abdomen/Pelvis CT showing abnormally thickened sigmoid colon wall, and was recommend colonoscopy follow-up to exclude early malignant neoplasm of the sigmoid colon. Patient was given 2u PRBC transfusion with adequate response to Hgb 9.0 Hospital course: Patient had colonoscopy with biopsy done, and found rectal invasive adenocarcinoma. Pelvic MRI wo contrast was done, and pending report. Unable to do MRI w contrast due to elevated Cr of 1.5. Patient has been hemodynamically stable s/p 2u PRBC. Hgb improved to 9.5 this morning. He denies weakness, fatigue, dizziness, nausea or vomiting. He reports light brown formed stool this morning. He denies seeing any red coloration in his stools today. Denies any pain with bowel movement today. Patient denies any questions and concerns at discharge. Consults during this admission: - GI, Dr. Urbano - Radiation Oncology, Dr. Piper Discharge Instructions: Follow up appt. with Dr. Thurston at [facility], #[phone]. June 15 @ 1:45p.m. at [address] Take meds as prescribed Follow up with MRI results with your PCP See your site operations manager, Dr. Urbano, to follow up from the hospital within 1- 2 weeks. Address: [address] [place] [address]. Phone: . Call to make an appointment You will need to go to the radiation oncologist, Dr. Piper. Have your PCP send a referral Return to ER if your symptoms worsen or return Problem list: #Lower GI bleed #Microcytic anemia #Rectal invasive adenocarcinoma #Syncope #Falls #Alcohol use disorder #THORNTON #Elevated lipase #HTN Case discussed with my attending Dr. Florence, and senior resident, Dr. Carla Jimenez, OMS4 Time Spent with Patient Time attestation: Total time spent providing and/or coordinating discharge services: Time spent: Greater than 30 minutes Exam Vital Signs Temp Pulse Resp BP Pulse Ox O2 Del Method O2 Flow Rate 97 F 101 H 16 140/89 H 99 Room Air 3 06/11/25 12:06/11/25 12:06/11/25 12:06/11/25 12:06/11/25 12:06/11/25 12:06/09/25 19:35 Narrative Exam GENERAL: A&OX3. No acute distress. Not diaphoretic. Ambulatory without assistance. HEENT: Normocephalic. No scleral icterus. EOMI CV: Regular rate and rhythm. S1 and S2 heard. No murmurs. PULM: No accessory muscle use. CTAB. No wheezing or crackles. ABDOMEN: Soft and non-distended. No tenderness to palpation of all quadrants. No rebound or guarding. SKIN: Warm and dry. NEURO: Moving all extremities spontaneously. No aphasia. No facial asymmetry. PSYCH: Cooperative with exam. Discharge Plan Plan Patient Disposition: HOME (Self Care) Patient condition on transfer: Stable Care Plan Goals: Discharge Instructions: Follow up appt. with Dr. Thurston at [facility], #[phone]. June 15 @ 1:45p.m. at [address] Take meds as prescribed Follow up with MRI results with your PCP See your site operations manager, Dr. Urbano, to follow up from the hospital within 1- 2 weeks. Address: [address], [place] [address]. Phone: . Call to make an appointment You will need to go to the radiation oncologist, Dr. Piper. Have your PCP send a referral Return to ER if your symptoms worsen or return Prescriptions/Referrals Prescriptions/Med Rec: New folic acid 1 mg Tablet 1 mg PO QDAY 7 Days Qty: 7 0RF omeprazole 40 mg capsule,delayed release(DR/EC) 40 mg PO QDAY Qty: 14 0RF ferrous sulfate 220 mg (44 mg iron)/5 mL elixir 110 mg PO QDAY Qty: 473 0RF Continued Losartan Potassium * (COZAAR *) 25 MG tablet 50 mg PO QDAY Qty: 0 Referrals: Sky Thurston MD [Primary Care Provider] - Manjeet Piper MD [Physician] - aKe Urbano MD [Physician] - Patient/Caregiver Discharge Instructions Discharge Activity: activity as tolerated Other Discharge Activity Instructions:: Follow up appt. with Dr. Thurston at [facility], #[phone]. June 15 @ 1:45p.m. at [address] Education Materials: Anemia During Cancer, Colonoscopy, Upper GI Endoscopy Print Language: Irish Stand Alone Forms: Bibi Award Info., Patient Portal Info Letter Discharge Order Discharge Orders: Discharge (Routine); Ordered 06/11/25 Ordered By: Del Aguirre Quality Discharge Quality Measures none MD Attestestation MD Attestation I have discussed and was present for the essential components of the discharge history, physical examination, diagnosis, and discharge treatment plan with the resident. I agree with the patient's discharge care as documented by the re sident and amended herein by me. Tej Florence DO. The patient understood all discharge instructions, all questions were answered satisfactorily. The patient was instructed to return to the Emergency Department is symptoms worsened or persisted. Although this document has been carefully reviewed, there may still be some phonetic and other typographical errors. These errors are purely grammatical due to imperfections in the software program and should not be construed in any way to compromise the substance of the patient's medical care during this visit.
--- NOTE | 2025-06-11 20:59 | PD.IMPROG ---
Documentation for date of: 06/11/25 Subjective Subjective Interval history: Late entry for the note colonic mass biopsies are positive for adenocarcinoma Spoke with Dr. Urbano radiation oncologist Pending insurance coverage to our cancer care center Everything is all set Patient can be discharged to be followed by oncology Exam Vital Signs Temp Pulse Resp BP Pulse Ox O2 Del Method O2 Flow Rate 97 F 101 H 16 140/89 H 99 Room Air 3 06/11/25 12:00 06/11/25 12:00 06/11/25 12:00 06/11/25 12:00 06/11/25 12:00 06/11/25 12:00 06/09/25 19:35 Objective Labs 06/11/25 04:52 06/11/25 04:52 Labs: Laboratory Results - last 24 hr 06/11/25 04:52 WBC 10.5 RBC 5.28 Hgb 9.5 L Hct 33.2 L MCV 63 L MCH 18.0 L MCHC 28.6 L RDW Std Deviation 68.3 H Plt Count 431 Neut % (Auto) 67 Lymph % (Auto) 19 [place] % (Auto) 9 Eos % (Auto) 4 Baso % (Auto) 1 Neut # (Auto) 7.0 Lymph # (Auto) 2.0 [place] # (Auto) 0.9 H Eos # (Auto) 0.5 Baso # (Auto) 0.1 Immature Gran # (Auto) 0.07 H Absolute Nucleated RBC 0.03 H Immature Gran % 1 H Nucleated RBC % 0 PT 10.3 INR 0.9 Sodium 141 Potassium 4.6 Chloride 107 Carbon Dioxide 22.6 Anion Gap 11 BUN 13 Creatinine 1.4 H Estim Creat Clear Calc 37.1 L eGFR 55 L BUN/Creatinine Ratio 9 L Glucose 110 H Calculated Osmolality 282 Calcium 9.2 Corrected Calcium 9.2 Phosphorus 3.1 Magnesium 1.9 Total Bilirubin 0.4 AST 25 ALT 23 Alkaline Phosphatase 64 Total Protein 7.5 Albumin 4.5 Globulin 3.0 Albumin/Globulin Ratio 1.5 Impressions Impression: Adenocarcinoma rectosigmoid To be followed by oncology upon discharge Assessment & Plan A&P Narrative 1. Likely colorectal cancer partially obstructing mass 10 to 12 cm from anal verge going up to rectosigmoid region. Biopsy result pending. 2. No obvious distant mets on CT scan MRI pelvis pending. Mild elevation of CEA 3. Appears stable following packed cell transfusion following admission. Gave patient information to have primary care physician refer self to cancer center upon discharge. 4. Thank you very much for allowing me to evaluate this patient. Time Spent With Patient Time: Total time spent is greater than 50% in coordination of care (as documented) at patient's floor/unit and/or counseling patient:
== END 2025-06-11 12:49 | disposition home or self-care (01) | DRG 369 ==
LOC: SERX 11:58 → SERHOLD 13:42 → S3SX 19:01
PROVIDERS: Nurse Practitioner Family; Specialist; Admitting Provider Student in an Organized Health Care Education/Training Program; Emergency Provider Emergency Medicine; PCP Family Medicine; Visit Provider Student in an Organized Health Care Education/Training Program
PROC: 0DJ08ZZ Inspection of Upper Intestinal Tract, Via Natural or Artificial Opening Endoscopic (ICD-10-PCS; CPT 43239; principal; 2025-06-09 17:30)
PROC: 0DJD8ZZ Inspection of Lower Intestinal Tract, Via Natural or Artificial Opening Endoscopic (ICD-10-PCS; CPT 45378; 2025-06-09 17:30)
DX: K20.91 Esophagitis, unspecified with bleeding (principal); C19 Malignant neoplasm of rectosigmoid junction; D62 Acute posthemorrhagic anemia; K63.3 Ulcer of intestine; I10 Essential (primary) hypertension; D50.9 Iron deficiency anemia, unspecified; K63.5 Polyp of colon; R55 Syncope and collapse; K75.81 Nonalcoholic steatohepatitis (NASH); F10.10 Alcohol abuse, uncomplicated; R74.8 Abnormal levels of other serum enzymes; Z87.891 Personal history of nicotine dependence
CPT/HCPCS: 36415; 36430; 72195; 74176; 76705; 80053; 81001; 82105; 82378; 82728; 83540; 83550; 83690; 83735; 84100; 85014; 85018; 85025; 85046; 85610; 85730; 86705; 86706; 86803; 86850; 86900; 86901; 86923; 87086; 87340; 96365; 96374; 96376; 99285; A4649; J0696; J1200; J2250; J2354; J2470; J3010; J3411; J7050; J7120; P9016; A9270

== ENCOUNTER 2025-07-19 13:24 | Emergency (ER) | payer MEDICARE, MEDICAID, SELFPAY ==
[2025-07-19] VITALS (7 sets, daily range): BP systolic 163–187; BP diastolic 95–114; PULSE 73–90; RESP 16–22; TEMP 36.4–36.9; O2SAT 97–99
--- NOTE | 2025-07-19 14:43 | XR_ITS ---
Examination: AP chest single view Technique: AP portable chest single view Date and time: July 19, 2025 1551 hrs. Indications: Onset chest pain today. Findings: Mild prominence left ventricle. Ectatic thoracic aorta. Minor subsegmental atelectasis left base. No pneumonia or pulmonary edema Impression: No pneumonia or pulmonary edema.
--- NOTE | 2025-07-19 14:43 | EKG_ITS ---
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
--- NOTE | 2025-07-19 14:45 | PD.EDRME ---
Rapid Medical Screening Exam RME Arrival date/time: 07/19/25 13:24 Chief Complaint: Shortness of Breath/Dyspnea Time Seen by Provider: 07/19/25 14:36 Vital signs: Vital Signs Temperature 98.3 F 07/19/25 14:20 Pulse Rate 82 07/19/25 14:20 Respiratory Rate 18 07/19/25 14:20 Blood Pressure 187/95 H 07/19/25 14:20 Pulse Oximetry (%) 97 07/19/25 14:20 Oxygen Delivery Method Room Air 07/19/25 14:20 RME Narrative: 65-year-old male with past medical history of anemia, colon cancer, hypertension presents to the ER complaining of shortness of breath, lightheadedness, and chest heaviness worsening for the past 3 days Patient has not been compliant with losartan x 1 month since his discharge for his most recent hospital stay which was due to anemia. Patient does take a daily 81 mg aspirin daily. Denies vomiting.
[2025-07-19 15:27] LABS: Basophils # (Auto) 0.1 Thou/mm3 (0.0-0.2); Basophils % (Auto) 1 % (0-2.5); Eosinophils # (Auto) 0.4 Thou/mm3 (0.0-0.5); Eosinophils % (Auto) 4 % (0-10); Hematocrit 40.8 % (41.0-53.0); Hemoglobin 12.6 g/dL (13.5-16.0); Immature Granulocytes Auto 0.02 Thou/mm3 (0.00-0.00); Lymphocytes # (Auto) 2.0 Thou/mm3 (1.0-4.8); Lymphocytes % (Auto) 20 % (10-50); Mean Corpuscular HGB Conc 30.9 g/dl (31.0-37.0); Mean Corpuscular Hemoglobin 21.1 pg (25.0-35.0); Mean Corpuscular Volume 69 fL (80-100); Monocytes # (Auto) 0.8 Thou/mm3 (0.0-0.8); Monocytes % (Auto) 8 % (0-12); Neutrophils # (Auto) 6.6 Thou/mm3 (1.8-7.7); Neutrophils % (Auto) 66 % (37-80); Nucleated Red Blood Cell # 0.00 Thou/mm3 (0.00-0.00); Nucleated Red Blood Cell % 0 /100 WBC (0); Platelet Count 213 Thou/mm3 (140-440); RDW Standard Deviation 66.2 fL (35.1-43.9); Red Blood Count 5.96 Miln/mm3 (4.50-5.90); White Blood Count 10.0 Thou/mm3 (3.8-10.6)
--- NOTE | 2025-07-19 15:36 | EDNOTE_ITS ---
<Statement entered by Belem Narvaez MD - 07/20/25 06:25> I, Belem Narvaez MD, have reviewed the history, exam, and assessment of the patient. I have evaluated the patient independently and agree with the plan of care documented by [ ]. All diagnostic studies were reviewed and discussed. I confirm the diagnosis as documented by the Resident. I was present during the Medical Decision Making for this patient. The patient's plan of care was created between myself and the Resident and consistent with our discussion of the patient's case. ED SOB =RME/HPI General Chief Complaint: Shortness of Breath/Dyspnea Stated Complaint: SOB, LIGHT-HEADED, POSTERIOR NECK PAIN X 3 DAYS Time Seen by Provider: 07/19/25 14:36 Arrival date/time: 07/19/25 13:24 RME / HPI RME / HPI Narrative: 65-year-old male with past medical history of anemia, colon cancer, hypertension presents to the ER complaining of shortness of breath, lightheadedness, and chest heaviness worsening for the past 3 days Patient has not been compliant with losartan x 1 month since his discharge for his most recent hospital stay which was due to anemia. Patient does take a daily 81 mg aspirin daily. Denies vomiting. Mr. Li is a 65-year-old male with past medical history of invasive rectal adenocarcinoma, anemia and hypertension who presented to [facility] emergency department with a chief complaint of headache. Patient reported that his symptoms started 3 days ago and have been progressively getting worse, he reports adequate p.o. intake, reports he has not been taking his losartan since his discharge. He endorses headache at the back of his head, blood pressure on presentation 187/95. He also endorses some dizziness. He complains of mild shortness of breath, he denies any chest pain or palpitations nausea vomiting. Related Data Home Medications ?Medication ?Instructions ?Recorded ?Confirmed Losartan Potassium * (COZAAR *) 50 mg PO QDAY #0 tabs 03/10/16 06/08/25 Previous Rx's ?Medication ?Instructions ?Recorded ferrous sulfate 220 mg (44 mg 110 mg (2.5 mL) PO QDAY #473 mL 06/11/25 iron)/5 mL oral elixir omeprazole 40 mg capsule,delayed 40 mg PO QDAY #14 cap s 06/11/25 release Allergies Allergy/AdvReac Type Severity Reaction Status Date / Time No Known Allergies Allergy Verified 07/19/25 13:27 Review of Systems Review of Systems Systems Reviewed: All systems reviewed, normal except as documented Past Medical History Family History OTHER FAMILY HX: Denies family history of cancer or had heart failure Social History SOCIAL: Smoked 20 pack years and moderate drinking for 20 years 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 Conversational and non-toxic appearing. HEENT: Normocephalic, atraumatic, mucous membranes moist. Heart: Regular rate and rhythm, no murmurs. Lungs: Clear to auscultation with no wheezing or crackles. Abdomen: Soft, nondistended, nontender, positive bowel sounds. ?No guarding or rebound tenderness. Neurologic: Alert and oriented x3, no gross neurological deficit, and patient able to move all 4 extremities. Extremities: No edema. Skin: No rash or ecchymoses. Course Course Course Narrative: Patient blood pressure elevated, will be given hydralazine 10 mg IV x 1 and Tylenol 500 x 1 for headache and blood pressure. EKG reviewed shows sinus rhythm CBC: WBC 10, hemoglobin 12.6, platelet count 213 CMP: Sodium 141, potassium 4.8, bicarb 26.6, chloride 105, BUN 9, creatinine 1.1, GFR greater than 60, corrected calcium 10.7 otherwise unremarkable Chest x-ray negative for any signs of pneumonia Patient given 1 L NS bolus, home dose losartan. Blood pressure is improved 160/90, patient stable for discharge. Quality Measures none Orders Category Date Time Status Rn Or Lvn STAT Care 07/19/25 14:43 Active Continuous Pulse Oximetry ONCE Care 07/19/25 14:43 Active EKG (ED ONLY) *Do not use* NOW Care 07/19/25 14:43 Completed Insert IV STAT Care 07/19/25 14:43 Active EKG (ED Only) Stat Exams 07/19/25 14:43 Draft XR chest 1V portable Stat Exams 07/19/25 14:43 Completed CBC Stat Lab 07/19/25 15:10 Completed Comprehensive Metabolic Panel Stat Lab 07/19/25 15:10 Completed Prothrombin Time with INR Stat Lab 07/19/25 15:10 Completed Troponin I Stat Lab 07/19/25 15:10 Completed Acetaminophen Tab [Tylenol ES Tab] Med 07/19/25 15:34 Discontinued 500 mg PO X1 ONE Losartan [Cozaar] Med 07/19/25 17:06 Discontinued 50 mg PO X1 ONE Sodium Chloride 0.9% 1000 ml [Ns] 1,000 ml Med 07/19/25 15:57 Discontinued IV 999 mls/hr hydrALAZINE INJ [Apresoline Inj] Med 07/19/25 15:56 Discontinued 10 mg IVP X1 ONE Vital Signs Vital signs: Vital Signs Temperature 98.3 F 07/19/25 14:20 Pulse Rate 82 07/19/25 14:20 Respiratory Rate 18 07/19/25 14:20 Blood Pressure 187/95 H 07/19/25 14:20 Pulse Oximetry (%) 97 07/19/25 14:20 Oxygen Delivery Method Room Air 07/19/25 14:20 Shortness of Breath / Dyspnea [facility] Narrative MDM Narrative:: # Hypertensive urgency # Headache Patient presented with chief complaint of occipital headache some dizziness, blood pressure on presentation 187/95 He complained of headache likely secondary to the hypertension, CBC CMP unremarkable, no acute organ damage noted, troponin normal EKG showed sinus rhythm Chest x-ray negative for any signs of pneumonia Patient was given 1 L fluid bolus Patient was given hydralazine 10 IV x 1 and home dose losartan and Tylenol for headache. Patient is stable for discharge, patient was noncompliant with losartan at home, stressed upon the importance of continuing home dose losartan Case discussed with Attending Physician Dr. Solange Conley MD Internal Medicine PGY-2 Disclaimer: This note was dictated by speech recognition. Minor errors in cellular tower climber may be present due to voice recognition software. Patient data External records reviewed:: [facility] previous records Clinical information provided by:: patient Social determinants that could affect healthcare access:: none Patient has the following chronic illnesses:: As Above How is presenting disease/condition affected by chronic disease/condition?: exacerbated by Evaluation data The following diagnostics were reviewed and interpreted by me:: lab results, radiology exam(s) and EKG tracing(s) Lab and/or radiology exams considered but not ordered:: None Interpretation Summary: EKG reviewed shows sinus rhythm CBC: WBC 10, hemoglobin 12.6, platelet count 213 CMP: Sodium 141, potassium 4.8, bicarb 26.6, chloride 105, BUN 9, creatinine 1.1, GFR greater than 60, corrected calcium 10.7 otherwise unremarkable Chest x-ray negative for any signs of pneumonia Medications / Prescriptions Medications or Prescriptions considered but not ordered:: None Medication administrations:: Medication Administration History Discontinued Medications Acetaminophen (Acetaminophen 500 Mg Tablet) 500 mg PO X1 ONE Stop: 07/19/25 15:35 Last Admin: 07/19/25 15:48 Dose: 500 mg Documented By: MEET Hydralazine HCl (Hydralazine Inj 20 Mg/Ml Vial) 10 mg IVP X1 ONE Stop: 07/19/25 15:57 Last Admin: 07/19/25 16:15 Dose: 10 mg Documented By: MEET Sodium Chloride (Ns) 1,000 mls @ 999 mls/hr IV .Q1H1M ONE Stop: 07/19/25 16:57 Last Infusion: 07/19/25 17:20 Dose: Infused Documented By: Admin: 07/19/25 16:16 Dose: 999 mls/hr Documented By: MEET Losartan Potassium (Losartan Potassium 25 Mg Tablet) 50 mg PO X1 ONE Stop: 07/19/25 17:07 Last Admin: 07/19/25 18:26 Dose: 50 mg Documented By: MEET As Above Consultations Consultation(s) initiated? (list below): No Diagnosis Shortness of Breath Differential Diagnosis: other Most likely diagnosis given after review of the tests above:: Hypertensive Urgency Admission Indicated Admission indicated?: not indicated Admission Request Was there a request for admission?: No Disposition Plan Disposition Plan: Discharge Discharge Attestation Discharge Attestation: The patient and all family members were given an opportunity to ask questions and understood the discharge instructions. Discharge instructions specifically effects, indications for sooner follow up or return to the emergency department, and the expected course of current diagnosis. Patient condition: Stable Discharge Plan Plan Patient Disposition: HOME (Self Care) Patient condition on transfer: Stable Health Concerns: - Please continue to take your losartan daily take 50 mg daily, check your blood pressure at home 3 times a day. - Continue all other other home medications. - Maintain adequate fluid intake, drink at least 2 to 3 L of water daily. - Follow-up with primary care physician in 1 week - Return to emergency department if your symptoms worsen Prescriptions/Referrals Prescriptions/Med Rec: Continued Losartan Potassium * (COZAAR *) 25 MG tablet 50 mg PO QDAY Qty: 0 omeprazole 40 mg capsule,delayed release(DR/EC) 40 mg PO QDAY Qty: 14 0RF ferrous sulfate 220 mg (44 mg iron)/5 mL elixir 110 mg PO QDAY Qty: 473 0RF Referrals: Aram Thurston MD [Primary Care Provider] - In 1 week Problem List Clinical Impression: Hypertensive urgency Patient/Caregiver Discharge Instructions Discharge Activity: activity as tolerated Print Language: Hungarian Stand Alone Forms: Bibi Award Info., Patient Portal Info Letter
[2025-07-19 15:37] LABS: INR 1.0 (0.9-1.3); Prothrombin Time 10.6 Seconds (9.0-12.2)
[2025-07-19] MEDS: ACETAMINOPHEN 500 MG TABLET PO (15:48)
[2025-07-19 15:51] LABS: Alanine Aminotransferase 14 U/L (10-49); Albumin, Serum 4.7 gm/dL (3.4-4.8); Albumin/Globulin Ratio 1.6 (1.2-2.2); Alkaline Phosphatase 73 U/L (46-116); Anion Gap 9 (7-16); Aspartate Amino Transferase 21 U/L (0-34); BUN/Creatinine Ratio 8 Ratio (12-20); Bilirubin,Total 0.4 mg/dL (0.3-1.2); Blood Urea Nitrogen 9 mg/dL (9-23); Calcium 10.7 mg/dL (8.3-10.6); Calcium (Corrected) 10.7 mg/dL (8.5-10.1); Carbon Dioxide 26.6 mMol/L (20.0-31.0); Chloride 105 mMol/L (98-107); Creatinine (Component) 1.1 mg/dL (0.6-1.3); Estimated Creatinine Clearance 54.0 mL/min (>60); Globulin 2.9 gm/dL (2.3-3.5); Glucose 97 mg/dL (74-106); Osmolality,Calculated 279 (275-295); Potassium 4.8 mMol/L (3.4-5.1); Sodium 141 mMol/L (136-145); Total Protein 7.6 gm/dL (5.7-8.2); Troponin I < 0.020 ng/mL (0.0-0.045); eGFR > 60 See Note
[2025-07-19] MEDS: hydrALAZINE INJ 20 MG/ML VIAL 10 MG IVP (16:15)
[2025-07-19] MEDS: SODIUM CHLORIDE 0.9% 1000 ML 1,000 ML 999 ML IV (16:16)
[2025-07-19] MEDS: LOSARTAN POTASSIUM 25 MG TABLET 50 MG PO (18:26)
== END 2025-07-19 18:40 | disposition home or self-care (01) ==
PROVIDERS: Physician Assistant; Emergency Provider Emergency Medicine; PCP Family Medicine
DX: I16.0 Hypertensive urgency (principal); I10 Essential (primary) hypertension; T46.5X6A Underdosing of other antihypertensive drugs, initial encounter; Z85.048 Personal history of other malignant neoplasm of rectum, rectosigmoid junction, and anus; Z79.82 Long term (current) use of aspirin; Z87.891 Personal history of nicotine dependence
CPT/HCPCS: 36415; 71045; 80053; 84484; 85025; 85610; 93005; 96361; 96374; 99283; J0360; J7030; A9270